=== PATIENT | male | born 1995 | race Asian ===

== ENCOUNTER 2018-01-20 00:58 | Emergency (ER) | payer OTHER ==
[2018-01-20 01:05] VITALS: BP 174/91
--- NOTE | 2018-01-20 01:31 | ED Physician Documentation ---
PD HPI UPPER EXT INJURY - Stated complaint Stated Complaint: L FINGER LAC - Chief complaint Chief Complaint: Laceration - History obtained from History obtained from: Patient - History of Present Illness Location: Left, Finger Type of injury: Laceration Where injury occurred: Work Timing - onset: Enter time (00:00 (midnight)), Today Associated symptoms: No: Weakness, Numbness Recently seen: Not recently seen - Additonal information Additional information: was working on a jet at work ([employer]), sustained left 2nd finger laceration on metallic sharp edge. He is right hand dominant. He is UTD on tetanus immunization. Review of Systems Skin: reports: Laceration (s) Neurologic: denies: Focal weakness, Numbness PD PAST MEDICAL HISTORY - Past Medical History Past Medical History: No - Past Surgical History Past Surgical History: No - Present Medications Home Medications: Ambulatory Orders Medication Instructions Recorded Confirmed No Known Home Medications 01/20/18 01/20/18 - Allergies Allergies/Adverse Reactions: Allergies Allergy/AdvReac Type Severity Reaction Status Date / Time No Known Drug Allergies Allergy Verified 01/20/18 01:05 - Social History Does the pt smoke?: No Smoking Status: Never smoker Does the pt drink ETOH?: No Does the pt have substance abuse?: No - Immunizations Immunizations are current?: Yes - POLST Patient has POLST: No PD ED PE NORMAL - Vitals Vital signs reviewed: Yes - General General: Alert and oriented X 3, No acute distress, Well developed/nourished - Extremities Extremities: No tenderness to palpate, Normal ROM s pain - Neuro Neuro: No motor deficit, No sensory deficit PD ED PE EXPANDED - Extremities KIRBY UE/Hands Visual: 1 - laceration ("c"-shaped laceration, total length 1 cm) Results - Vitals Vitals: Vital Signs - 24 hr 01/20/18 01:02 Temperature 36.2 C L Heart Rate 72 Respiratory 16 Rate Blood Pressure 174/91 H O2 Saturation 100 Oxygen O2 Source Room air PD MEDICAL DECISION MAKING - ED course Complexity details: considered differential, d/w patient ED course: left second finger laceration at tip, too superficial to benefit from sutures. Dermabond applied in two layers along with steri-strips Departure - Departure Disposition: 01 Home, Self Care Clinical Impression: Laceration Condition: Good Instructions: ED Laceration Ext Skin Glue Discharge Date/Time: 01/20/18 02:02
== END 2018-01-20 02:02 | disposition home or self-care (01) ==
LOC: ED 00:58
DX: S61.211A Laceration without foreign body of left index finger without damage to nail, initial encounter (principal); W26.9XXA Contact with unspecified sharp object(s), initial encounter; Y99.0 Civilian activity done for income or pay
CPT/HCPCS: 12001; 99282; 99283